=== PATIENT | female | born 2000 | race Two or more races ===

== ENCOUNTER → 2025-03-21 | Outpatient (CLI) | payer OTHER ==
[2025-03-21 17:06] LABS: PLATELET COUNT, AUTOMATED 272 10^3/uL (150-450)
[2025-03-21 17:20] LABS: LDH LACTATE DEHYDROGENASE 153 U/L (120-246)
[2025-03-21 17:21] LABS: ALT/SGPT 12 U/L (7.0-40); AST/SGOT 18 U/L (<34); CREATININE FOR GFR 0.55 MG/DL (0.55-1.30); GLOMERULAR FILTRATION RATE > 90.0 (>60)
[2025-03-21 17:25] LABS: TOTAL PROTEIN,RANDOM URINE 12.9 MG/DL (0.0-14.0)
[2025-03-21 17:49] LABS: HIV 1&2 SCREEN NEGATIVE (NEGATIVE)
[2025-03-21 17:55] LABS: Trichomonas vaginalis (AMP) NOT DETECTED (NEGATIVE)
[2025-03-21 17:56] LABS: HEPATITIS C VIRUS ABY INDEX < 0.02 INDEX (<0.8)
[2025-03-21 18:19] LABS: GC DNA AMPLIFICATION NEGATIVE (NEGATIVE)
== END ==
LOC: MERGE 14:56 → M PLALAB 14:56
PROVIDERS: ATTEND Advanced Practice Midwife
DX: Z34.81 Encounter for supervision of other normal pregnancy, first trimester (principal)